=== PATIENT | male | born 1970 | race Caucasian/White ===

== ENCOUNTER 2021-04-15 09:14 | Outpatient (CLI) | payer OTHER ==
[~2021-04-15] VITALS: Ht 182.9 cm; Wt 93.0 kg
[2021-04-15] MEDS ORDERED: albuterol 2.5 MG/3 ML nebule NEB ONE (11:20)
== END 2021-04-15 23:59 | disposition home or self-care (01) ==
LOC: RT 09:14
DX: L92.9 Granulomatous disorder of the skin and subcutaneous tissue, unspecified (principal)
CPT/HCPCS: 71046; 94060; 94760

== ENCOUNTER 2024-03-30 08:30 | Outpatient (CLI) | payer OTHER ==
[~2024-03-30] VITALS: Ht 182.9 cm; Wt 95.3 kg
[2024-03-30] MEDS: albuterol 2.5 MG/3 ML nebule NEB PRN (09:47)
[2024-03-30 09:49] VITALS: PULSE 69; RESP 12; O2SAT 96
[2024-03-30 10:00] VITALS: PULSE 68; RESP 16
== END 2024-03-30 23:59 | disposition home or self-care (01) ==
LOC: RT 08:30
PROVIDERS: ATTEND Chiropractor
DX: J44.9 Chronic obstructive pulmonary disease, unspecified (principal)
CPT/HCPCS: 71046; 94060; 94760